=== PATIENT | female | born 1945 | race Caucasian/White ===

== ENCOUNTER → 2017-10-18 13:35 | Outpatient (CLI) | payer MEDICARE, OTHER, SELFPAY ==
--- NOTE | 2017-10-18 | DI.RAD.S_ITS ---
This blank DEXA report has been sent in error by the PACS system. The correct and complete report will be forthcoming in 1-2 days. Thank you for your patience and understanding. Dictated by: Griffin Mary M.D. on 10/18/2017 at 15:07 Approved by: Griffin Mary M.D. on 10/18/2017 at 15:08
== END ==
PROVIDERS: Visit Provider Family Medicine
DX: M85.832 Other specified disorders of bone density and structure, left forearm (principal); Z78.0 Asymptomatic menopausal state; Z82.62 Family history of osteoporosis
CPT/HCPCS: 77080

== ENCOUNTER → 2020-07-06 13:41 | Outpatient (CLI) | payer MEDICARE, OTHER, SELFPAY ==
--- NOTE | 2020-07-06 | DI.MRI.S_ITS ---
PROCEDURE: MR PELVIS WO CON INDICATIONS: disorders of bone density pelvic swelling TECHNIQUE: Noncontrast axial and coronal T1 spin echo and STIR through the lumbosacral plexus region. Optional contrast may be given, followed by axial and coronal T1 spin echo with fat saturation through the sacral plexus. COMPARISON: None. FINDINGS: Image quality: Excellent. Lumbosacral plexus: Superior to the piriformis muscles, the pre-plexal structures appear normal, including the lumbosacral trunk and S1 root. Just anterior to the piriformis muscles, the sacral plexus proper demonstrates normal morphology (lumbosacral trunk, S1 to S3 nerve roots). Inferior to the piriformis muscles, the sciatic nerves appear normal. Soft tissues: The piriformis muscles appear symmetric in size. No presacral masses. Rectum appears normal in caliber and wall thickness. No pathologic free pelvic fluid. No visualized adenopathy by size criteria. Note is made of sigmoid diverticulosis that is prominent but no acute diverticulitis is found. Bones: Marrow is normal in overall signal. There is a left hip arthroplasty and this produces localized metal artifact immediately adjacent to the arthroplasty device. The quality of visualization of the pelvis through the area of metal artifact is quite excellent, given that the artifact terminates only slightly medial to the pelvic osseous margin. IMPRESSION: A small portion of the pelvis centered on the left total hip arthroplasty is poorly visualized due to metal artifact but the large majority of the pelvis is very well visualized, and the significant finding at this time is presence of relatively prominent diverticulosis throughout the sigmoid colon. Acute diverticulitis, however, is not seen. No impingement on the sacral plexus is found. No adenopathy is seen. No infection or neoplasm is suspected. Dictated by: Chandu Arceo M.D. on 07/06/2020 at 14:56 Approved by: Chandu Arceo M.D. on 07/06/2020 at 14:58
== END ==
PROVIDERS: Family Provider Nurse Practitioner; PCP Family Medicine; Referring Provider Family Medicine; Visit Provider Family Medicine
DX: R19.07 Generalized intra-abdominal and pelvic swelling, mass and lump; Z96.642 Presence of left artificial hip joint
CPT/HCPCS: 72195; 77080

== ENCOUNTER → 2020-10-27 15:02 | Outpatient (CLI) | payer MEDICARE, OTHER, SELFPAY ==
--- NOTE | 2020-10-27 | DI.CT.S_ITS ---
PROCEDURE: CT CHEST WO CON INDICATIONS: Other nonspecific abnormal finding of lung field, reportedly mass of upper lobe of right lung. TECHNIQUE: Noncontrast 5 mm thick sections acquired from the pulmonary apices to the posterior costophrenic angles. 1 mm lung window, 5 mm thick coronal and sagittal and 7 mm axial MIP reformats were then acquired. For radiation dose reduction, the following was used: automated exposure control, adjustment of mA and/or kV according to patient size. COMPARISON: [facility], MR, SHOULDER WITHOUT CONTRAST, 06/08/2016, 14:52. [facility], MR, BRACHIAL PLEXUS, 06/08/2016, 15:09. [facility], CR, CHEST 2 VIEW, 04/03/2011, 18:45. [facility], , SPINE CERVICAL MIN 4VW, 05/29/2016, 15:22. FINDINGS: Image quality: Excellent. Lungs and pleura: No acute air space opacities. There appears to be mild left lung base alveolar scarring, without evidence of active pneumonia or underlying mass lesion in that area. At the right upper lobe there is a high density structure that is best seen on CT series 3, image 51 with internal radiodensity of 1784 Hounsfield units, densely calcified. This structure has no visible soft tissue component and measures up to 6 mm. This would be visible on plain film imaging near the right lung apex. Also noted is tortuosity of the right upper lobe mediastinal margin vessels, which has been previously present on prior MR scanning as a normal variant, producing a soft tissue contour prominence in that area. No pleural effusions or pneumothorax. Central and peripheral airways are patent and normal in caliber. Mediastinum: Heart size is normal. No pericardial effusion. No mediastinal adenopathy by size criteria. Thoracic aorta and central pulmonary arteries are normal in size. Esophagus is normal in caliber. No hiatal hernia. Bones and chest wall: No suspicious bony lesions. No vertebral body compression fractures. No axillary or supraclavicular adenopathy by size criteria. Thyroid gland is not well seen . Abdomen: Visualized upper abdominal solid organs and bowel loops appear normal in the absence of contrast. IMPRESSION: 1. Densely calcified small granuloma measuring 6 mm near the lower aspect of the right lung apex. No follow-up recommended. 2. Prominent vascular contour margin at the upper right border of the mediastinum, which represents prominent vascularity in that area but no evidence of soft tissue mass is present. No follow-up recommended. 3. Mild left lower lobe lung parenchymal alveolar scarring, no evidence of active pneumonia, no mass in this area, no specific follow-up recommended. Dictated by: Chandu Arceo M.D. on 10/27/2020 at 16:34 Approved by: Chandu Arceo M.D. on 10/27/2020 at 16:42
== END ==
PROVIDERS: Family Provider Nurse Practitioner; PCP Family Medicine; Referring Provider Family Medicine; Visit Provider Family Medicine
DX: R91.8 Other nonspecific abnormal finding of lung field (principal)
CPT/HCPCS: 71250

== ENCOUNTER → 2022-09-28 12:09 | Outpatient (CLI) | payer MEDICARE, OTHER, SELFPAY ==
--- NOTE | 2022-09-28 | DI.MRI.S_ITS ---
PROCEDURE: MR SHOULDER RT WO CON INDICATIONS: RIGHT SHOULDER PAIN TECHNIQUE: Noncontrast oblique coronal T2 fast spin echo with fat saturation, oblique sagittal T1 spin echo and T2 fast spin echo with fat saturation, axial T1 spin echo and T2 fast spin echo with fat saturation through the shoulder. COMPARISON: [facility], MR, SHOULDER WITHOUT CONTRAST, 06/08/2016, 14:52. FINDINGS: Image quality: Excellent. Rotator cuff: There is high-grade partial-thickness tear of the supraspinatus tendon from the musculotendinous junction to footprint. There is moderate infraspinatus and subscapularis tendinosis. No high-grade tendon tear. There is teres minor muscle atrophy. Bones and bursae: No fractures. There is patchy edema in the humeral head, probably reactive. Moderate acromioclavicular and glenohumeral joint degeneration. The acromion demonstrates conventional anatomy, without an os acromiale. There is subacromial-subdeltoid, as well as subcoracoid bursal fluid consistent with bursitis. Capsule and soft tissues: There is tear of the posterior superior labrum with paralabral cyst. There is superimposed degenerative labral fraying. The long head of the biceps tendon demonstrates normal location and morphology. The rotator interval appears normal, without fibrosis. The coracohumeral ligament is normal in thickness. IMPRESSION: 1. High-grade partial-thickness tear of the supraspinatus tendon. 2. Moderate infraspinatus and subscapularis tendinosis without high-grade tendon tear. 3. Teres minor muscle atrophy, etiology uncertain. No deltoid muscle atrophy. New line 4. Posterior superior labral tear with paralabral cysts. 5. Subacromial-subdeltoid and subcoracoid bursitis. Dictated by: Clara Brambila M.D. on 09/28/2022 at 17:32 Approved by: Clara Brambila M.D. on 09/28/2022 at 23:08
--- NOTE | 2022-09-28 13:28 | DI.DEXA.S_ITS ---
Bone Density Report Name: SHANE ALDRICH Age: 76 Sex: Female Ethnicity: White Date of : 1945 Indication: osteopenia; prior fracture; Referring Provider: RYAN MORELAND Study: Bone densitometry was performed. Exam Date: September 28, 2022 Accession number: [id number] Bone Density: Region BMD T-score Z-score Classification Femoral Neck (Right) 0.666 -1.6 0.5 Osteopenia Total Hip (Right) 0.808 -1.1 0.8 Osteopenia Total Forearm (Left) 0.494 -1.6 1.1 Osteopenia 1/3 Forearm (Left) 0.604 -1.5 1.3 Osteopenia UD Forearm (Left) 0.352 -1.6 0.4 Osteopenia World Health Organization criteria for BMD impression classify patients as: Normal (T-score at or above -1.0), Osteopenia (T-score between -1.0 and -2.5), or Osteoporosis (T-score at or below -2.5). 10-year Fracture Risk(1): Major Osteoporotic Fracture 19% Hip Fracture 3.9% Reported Risk Factors: [place] (), Neck BMD=0.666, BMI=27.1, previous fracture (1) FRAX(R) Version 3.08. Fracture probability calculated for an untreated patient. Fracture probability may be lower if the patient has received treatment. Previous Exams: -- Region Exam Age BMD T-score BMD Change BMD Change Date g/cm2 vs Baseline vs Previous -- Total Hip(Right) 09/28/2022 76 0.808 -1.1 0.053 (7.0%)# 0.053 (7.0%)# 07/06/2020 74 0.755 -1.5 -- *Denotes significance at 95% confidence level, LSC for Total Hip = 0.027 g/cm2 # Denotes dissimilar scan types or analysis methods Impression: The patient has low bone mass, based on the Right Femoral Neck T-score. The patient has an estimated ten-year risk of hip fracture of 3.9% and an estimated ten-year risk of major fracture of 19%, based on the WHO FRAX algorithm. The patient has risk factors, including: previous fracture. No significant bone loss was observed. Discussion: BONE DENSITY IS LOW AT ONE OR MORE SKELETAL SITES. THE PATIENT'S BMD AND CLINICAL RISK FACTORS CONTRIBUTE TO THIS PATIENT'S INCREASED RISK OF FRACTURE. This patient's lowest T-score is low at one or more skeletal sites. It meets the World Health Organization's (WHO) criteria for ?low bone mass? (T-score between -1.0 and -2.5). The patient's 10-year risk of hip fracture as calculated by FRAX exceeds the threshold where pharmacological therapy is recommended by the National Osteoporosis Foundation (NOF). However, all treatment decisions require clinical judgment and consideration of individual patient factors, including patient preferences, comorbidities, previous drug use, risk factors not captured in the FRAX model (e.g., frailty, falls, vitamin D deficiency, increased bone turnover, interval significant decline in bone density) and possible under or overestimation of fracture risk by FRAX. The patient should follow a healthful lifestyle (good nutrition with adequate calcium and vitamin D, and appropriate weight-bearing exercise). Follow-Up: Consider a repeat BMD and Vertebral Fracture Assessment (VFA) exam in 2 years or sooner if medically necessary, to reassess this patient's status. Reported by: JESSIKA CHAVEZ M.D. on 09/28/2022 1:53:00 PM.
== END ==
PROVIDERS: Family Provider Nurse Practitioner; PCP Family Medicine; Referring Provider Family Medicine; Visit Provider Family Medicine
DX: M75.111 Incomplete rotator cuff tear or rupture of right shoulder, not specified as traumatic; M75.51 Bursitis of right shoulder; M19.011 Primary osteoarthritis, right shoulder; S43.491A Other sprain of right shoulder joint, initial encounter; M85.851 Other specified disorders of bone density and structure, right thigh; Z78.0 Asymptomatic menopausal state; Z87.311 Personal history of (healed) other pathological fracture; M79.601 Pain in right arm; M25.551 Pain in right hip; R20.2 Paresthesia of skin; M50.30 Other cervical disc degeneration, unspecified cervical region
CPT/HCPCS: 73221; 77080; 77081